=== PATIENT | male | born 1965 | race Caucasian/White ===

== ENCOUNTER → 2018-11-10 07:36 | Outpatient (CLI) | payer OTHER, SELFPAY ==
--- NOTE | 2018-11-10 07:39 | NM_ITS ---
CARDIOLITE SPECT MYOCARDIAL PERFUSION [facility], REST AND STRESS: History: Chest pain pain, fatigue, tobacco use Procedure: Patient exercised on Jayme protocol 8 minutes and 45 seconds, resting heart rate was 64 bpm resting blood pressure 143/83, with exercise maximum heart rate achieved was 1 29 bpm which is less than 85% of the maximum predicted heart rate and a blood pressure was 170/78. The test was started due to shortness of breath patient denied any complained of chest pain. Patient has good exercise capacity achieved 10.1mets of workload on treadmill, the blood pressure response to exercise was adequate. Electrocardiogram: Resting electrocardiogram showed sinus rhythm, with exercise there is less than 1.[address] segment depression noted from the baseline EKG. In the recovery period there is [address] segment depression noted. The EKG portion of the site Myoview is positive for ischemia. Cardiac stress and resting SPECT images: Cardiac stress and resting SPECT images were obtained using technetium 99 Myoview 32.4 mCi at stress and 10.6 mCi at rest. Gated SPECT further analysis of segmental wall motion and calculation of the ejection fraction also done. Cardiac stress and resting SPECT images show uniform myocardial activity without segmental perfusion abnormality, computer derived ejection fraction is 54% with no regional wall motion abnormality, right ventricle is normal size and contractility. Conclusion: 1. The EKG portion of the exercise Myoview is positive for ischemia. Patient has good exercise capacity achieved 10.1mets of workload on treadmill, the blood pressure response to exercise was adequate. Test was stopped due to shortness of breath 2. No scintigraphic evidence of reversible ischemia seen at this level of exercise, computer derived ejection fraction is 54% with no regional wall motion abnormality, right ventricle is normal size and contractility.
== END ==
PROVIDERS: PCP Internal Medicine Adolescent Medicine; Visit Provider Internal Medicine Adolescent Medicine
DX: R07.9 Chest pain, unspecified (principal)
CPT/HCPCS: 78452; 93017; A9502

== ENCOUNTER → 2019-06-07 16:08 | Outpatient (CLI) | payer OTHER, SELFPAY ==
--- NOTE | 2019-06-07 16:14 | MR_ITS ---
PROCEDURE: MR LUMBAR SPINE WO CON CLINICAL INDICATION: LUMBAGO W/SCIATICA RIGHT SIDE, OTHER CHRONIC PAIN Low back pain, right leg pain with intermittent numbness COMPARISON: No exams were available for comparison TECHNIQUE: Standard multiplanar multiecho sequences are performed without contrast. 3-D MIP and myelographic images are also rendered and reviewed FINDINGS: There is normal alignment. The spinal cord ends at the L1-L2 level. T11-T12: Mild degenerative disc disease. T12-L1: Unremarkable. L1-L2: Small anterior osteophytes with type 2 endplate changes L2-L3: Unremarkable. L3-L4: Unremarkable. L4-5: Mild bulging disc along with facet ligamentum hypertrophy with mild right and [id number] left foraminal narrowing.. A small amount fluid is present in the left facet joint superiorly at this level. L5-S1: Mild concentric bulging disc along with facet and ligamentum hypertrophy. There mild to moderate bilateral foraminal narrowing. IMPRESSION: 1. L4-5: Mild bulging disc along with facet ligamentum hypertrophy with mild right and angh-us-hcqzfxhn left foraminal narrowing.. A small amount fluid is present in the left facet joint superiorly at this level. 2. L5-S1: Mild concentric bulging disc along with facet and ligamentum hypertrophy. There mild to moderate bilateral foraminal narrowing. 3. No extruded herniated disc or canal stenosis Dictated by: Perry Lopez MD 06/07/2019 19:23 Electronically signed by Perry Lopez MD in [place] 06/07/2019 19:23
== END ==
PROVIDERS: PCP Nurse Practitioner Family; Visit Provider Nurse Practitioner Family
DX: M54.41 Lumbago with sciatica, right side (principal); G89.29 Other chronic pain
CPT/HCPCS: 72148; 76376

== ENCOUNTER → 2019-11-23 09:24 | Outpatient (CLI) | payer OTHER, SELFPAY ==
[2019-11-23 09:31] LABS: MANUAL DIFFERENTIAL MANUAL DIFFERENTIAL (MANUAL DIFF)
[2019-11-23 09:44] LABS: Basophils # 0.2 K/mm3 (0-0.2); Basophils % 1.3 % (0.1-2.0); Eosinophils # 0.4 K/mm3 (0.0-0.4); Eosinophils % 3.9 % (0.1-12.0); Hematocrit 46.9 % (42.0-52.0); Hemoglobin 15.6 g/dL (14.1-18.0); Lymphocytes # 3.3 K/mm3 (0.7-4.5); Lymphocytes % 29.7 % (10-50); Mean Corpuscular HGB Conc 33.2 g/dL (31.8-35.4); Mean Corpuscular Hemoglobin 30.2 pg (27.0-31.2); Mean Corpuscular Volume 90.9 fl (80-94); Mean Platelet Volume 8.1 fl (7.4-10.4); Monocytes # 0.5 K/mm3 (0.1-1.0); Monocytes % 4.2 % (1.7-9.3); Neutrophils # 6.7 K/mm3 (1.8-7.8); Neutrophils % 60.9 % (37.0-80.0); Platelet Count 311 K/mm3 (142-424); Red Blood Count 5.16 M/mm3 (4.60-6.20)
[2019-11-23 11:16] LABS: Alanine Aminotransferase 41 U/L (12-78); Albumin Level 4.7 g/dl (3.5-5.0); Albumin/Globulin Ratio 1.6 (1.1-1.8); Alkaline Phosphatase 102 U/L (38-126); Anion Gap 9.3 mEq/L (5-15); Aspartate Amino Transferase 34 U/L (17-59); Bilirubin,Total 0.3 mg/dl (0.2-1.3); Blood Urea Nitrogen 12 mg/dl (9-20); Calcium 9.7 mg/dl (8.4-10.2); Carbon Dioxide 26 mmol/L (22.0-30.0); Chloride 106 mmol/L (98-107); Estimated Glomerular Filt Rate 78 ml/min (>60); GFR (African American) 94 ML/MIN (>60); Globulin 2.9 g/dL (1.3-3.2); Glucose 81 mg/dl (74-100); Potassium 4.3 mmoL/L (3.5-5.1); Sodium 137 mmol/L (136-145); Total Protein,Serum 7.6 g/dl (6.3-8.2)
[2019-11-23 11:21] LABS: Eosinophils % 5 % (0-3); Lymphocytes % 38 % (10-50); Monocytes % 4 % (2-9); Neutrophils % 53 % (42-76); Platelet Estimate Normal; RBC Morphology Normal; Total Cells Counted 100
== END ==
PROVIDERS: Visit Provider Nurse Practitioner Family
DX: D72.828 Other elevated white blood cell count (principal); R74.8 Abnormal levels of other serum enzymes
CPT/HCPCS: 36415; 80053; 85007; 85014; 85018; 85048; 85049

== ENCOUNTER → 2019-11-28 09:04 | Outpatient (CLI) | payer OTHER, SELFPAY ==
[2019-11-30 09:07] LABS: Peripheral Smear Review Scanned Result
== END ==
PROVIDERS: Visit Provider Nurse Practitioner Family
DX: R74.8 Abnormal levels of other serum enzymes (principal)
CPT/HCPCS: 36415

== ENCOUNTER → 2020-01-12 10:51 | Outpatient (CLI) | payer OTHER, SELFPAY ==
[2020-01-12 13:18] LABS: Coronavirus 19 IgG Antibody Negative (Negative); Coronavirus 19 IgM Antibody Negative (Negative)
== END ==
PROVIDERS: Visit Provider Internal Medicine Gastroenterology
DX: Z01.818 Encounter for other preprocedural examination (principal)
CPT/HCPCS: 36415; 86328

== ENCOUNTER 2020-01-15 07:41 | Day surgery (SDC) | payer OTHER, SELFPAY ==
[2020-01-09 11:43] VITALS: BMI 54.3
[2020-01-15 08:05] VITALS: BP 113/74; PULSE 70; RESP 18; TEMP 36.2; O2SAT 98
[2020-01-15 09:14] VITALS: O2SAT 97
--- NOTE | 2020-01-15 09:28 | P.PCN_ITS ---
[facility] Procedure Note Procedure Note:: Upper Endoscopy Procedure Report: Esophagogastroduodenoscopy with cold biopsies and TTS balloon dilation Endoscopost: Xander Hernandez II, MD Referring Physician: ART Rasheed Date of Procedure: January 15, 2020 Equipment: Olympus GIF 180 standard upper endoscope Sedation: MAC sedation Indications: Mr. Kaba is a 54-year-old gentleman with longstanding GERD for at least 7 or 8 years. His heartburn and reflux symptoms are controlled with pantoprazole. He does report intermittent dyspepsia with epigastric abdominal discomfort. He has moderate belching and some early satiety. He reports occasional dysphagia/globus sensation. He reports no nausea. He has regular bowel function. He did have an EGD years ago. Procedure: Prior to the procedure, a history and physical exam was performed, and patient's medications and allergies were reviewed. The risks, benefits and alternatives of the sedation and procedure were discussed with the patient. All questions were answered and informed consent was obtained. The patient was brought to the procedure room. Patient identification and proposed procedure were verified by the physician and the nurse. The patient was placed in a left lateral decubitus position and the scope was passed under direct vision. Throughout the procedure, the patient's blood pressure, pulse, and oxygen saturations were monitored continuously. The upper GI endoscopy was accomplished without difficulty. The patient tolerated the procedure well. Findings: The scope was passed directly into the upper esophagus and advanced to the third portion of the duodenum. The post bulbar duodenum and duodenal bulb were normal with normal mucosa and conniventes. The scope was withdrawn through a normal duodenal bulb and pylorus into the stomach. There was mild linear reactive gastropathy of the antrum and body of the stomach. The remainder of the antrum, body and fundus of the stomach were grossly normal. Upon retroflexion there was a small 1 to 2 cm hiatal hernia. 2 biopsies were taken in the antrum and along the lesser curvature for histology to rule out gastritis and/or H pylori. The scope was then withdrawn into the esophagus. There was no evidence of reflux esophagitis, Schatzki's ring or obvious Linder's esophagus. There was a serrated Z line and biopsies were taken at the GE junction. There were tertiary contractions and evidence of mild esophageal dysmotility. The entire esophagus was dilated to 60 Malagasy/20 mm with a TTS hydrostatic balloon. There was some resistance at the cricopharyngeus. The remainder of the esophageal mucosa was normal. Impression: 1. Nonerosive GERD with mild esophageal dysmotility and small 1 to 2 cm hiatal hernia 2. Mild linear reactive gastropathy Plan: I will follow-up the biopsies. The patient does have some functional dyspepsia and longstanding GERD. I would continue pantoprazole. I will proceed with high risk screening colonoscopy.
--- NOTE | 2020-01-15 09:49 | HMH.PROC ---
[facility] Procedure Note Procedure Note:: Colonoscopy Procedure Report: Colonoscopy with cold biopsies Endoscopist: Xander Hernandez II, MD Referring physician: ART Rasheed Date of Procedure: January 15, 2020 Equipment: Olympus 180 variable stiffness pediatric colonoscope Sedation: MAC sedation Indication: Mr. Kaba is a 54-year-old gentleman here for high risk screening colonoscopy. The patient does state that his mother had colon cancer in her early 70s. His maternal aunt had colon cancer as well. He reports no abdominal pain, weight loss, change in his bowel habits or rectal bleeding. He had a colonoscopy 10 or 11 years ago which was normal. Procedure: Prior to the procedure, a history and physical exam was performed, and patient's medications and allergies were reviewed. The risks, benefits and alternatives of the sedation and procedure were discussed with the patient. All questions were answered and informed consent was obtained. The patient was brought to the procedure room. Patient identification and proposed procedure were verified by the physician and the nurse. The patient was placed in a left lateral decubitus position and the scope was passed under direct vision. Throughout the procedure, the patient's blood pressure, pulse, and oxygen saturations were monitored continuously. The colonoscopy was accomplished without difficulty. The patient tolerated the procedure well. Findings: On digital rectal examination there was normal rectal tone. There were no external hemorrhoids. The prostate was 2+, smooth, soft, symmetric without nodules. The colonoscope was introduced through the anal canal to the rectum and advanced to the cecum. The ileocecal valve and appendiceal orifice were identified. The scope was advanced a short distance into the ileum which appeared grossly normal. The scope was then withdrawn into the colon. The cecum, ascending, transverse, descending and sigmoid colon were grossly normal. There were no mucosal abnormalities identified. There was a diminutive 1 to 2 mm polyp in the rectum removed via cold biopsy. Upon retroflexion within the rectum there were grade 2 internal hemorrhoids with mild prolapse.The preparation was excellent throughout with [place] Preparation Score of 9. The cecal time was 11 minutes. Impression: 1. Diminutive rectal polyp 2. Grade 2 internal hemorrhoids Plan: Based upon the patient's family history, I would recommend repeat surveillance/screening colonoscopy again in 5 years. I will follow-up the polyp histology. I would encourage bulk fiber supplementation on a long-term daily maintenance basis.
[2020-01-15 09:50] VITALS: BP 83/52; PULSE 62; RESP 12; TEMP 36.4; O2SAT 91
--- NOTE | 2020-01-15 09:58 | HMH.ANESCL ---
[facility] Anesthesia Checklist - Structural Data Admitted From: Home Planned Operative Procedure/s: egd/colonoscopy Consent for Planned Operative Procedure(s) Verified: Yes - Airway Assessment C-Spine Mobility Assessed: Yes TMJ Mobility Assessed: Yes Dentition: Good Dentition - Neurological Assessment Level of Consciousness: Awake, Alert, Appropriate - Anesthesia Plan Anesthesia Risk discussed: Yes Anesthesia Plan: Verified ASA Class: II Anesthesia Type: MAC [facility] History I have reviewed the patient's past medical history: Yes Medical History: Reports:: Gastroesophageal Reflux Disease(GERD), Seizures (as child) Denies:: Cancer, Diabetes Mellitus Type 1, Diabetes Mellitus Type 2, MRSA *Have you ever received a pneumonia vaccine?: Yes *Have you received a flu vaccine this season?: Yes Anesthesia experience/problems:: none Laterality Cases: Right: Arthroscopy Knee Other Surgeries: Yes: Hernia Repair (x3) Amputation: No Fractures: No - *Social History Educational Level: Completed High School Smoking Status: Current every day smoker Tobacco Type: cigarettes # Packs/Day (cigarettes): 1 #Yrs smoked (if former smoker): 40 Alcohol Intake: current Alcohol Intake Frequency:: holidays/special occasions only Substance Use Type: denies use *Occupational Status:: employed *Travel in the last 8 weeks: None Family Hx:: Cancer
[2020-01-15 10:00] VITALS: BP 87/56; PULSE 53; RESP 12; O2SAT 90
[2020-01-15 10:10] VITALS: BP 121/75; PULSE 57; RESP 16; O2SAT 97
[2020-01-15 10:20] VITALS: BP 99/56; PULSE 58; RESP 16; TEMP 36.4; O2SAT 97
== END 2020-01-15 10:30 | disposition home or self-care (01) ==
PROVIDERS: PCP Internal Medicine Adolescent Medicine; Visit Provider Internal Medicine Gastroenterology
PROC: 0DJ08ZZ Inspection of Upper Intestinal Tract, Via Natural or Artificial Opening Endoscopic (ICD-10-PCS; CPT 43235; principal; 2020-01-15 09:00)
DX: Z12.11 Encounter for screening for malignant neoplasm of colon (principal); K64.1 Second degree hemorrhoids; K62.1 Rectal polyp; K21.9 Gastro-esophageal reflux disease without esophagitis; K22.2 Esophageal obstruction; K31.9 Disease of stomach and duodenum, unspecified; K44.9 Diaphragmatic hernia without obstruction or gangrene; G47.33 Obstructive sleep apnea (adult) (pediatric); Z80.0 Family history of malignant neoplasm of digestive organs; Z82.49 Family history of ischemic heart disease and other diseases of the circulatory system; Z83.438 Family history of other disorder of lipoprotein metabolism and other lipidemia; Z72.0 Tobacco use
CPT/HCPCS: 45380; 43239; 43249; C1726

== ENCOUNTER → 2020-03-07 09:30 | Outpatient (CLI) | payer OTHER, SELFPAY ==
--- NOTE | 2020-03-07 09:45 | CT_ITS ---
PROCEDURE: CT ABDOMEN PELVIS WO/W CON CLINICAL INDICATION: ACUTE ABD PAIN IN THE L LOWER QUADRANT Left lower quadrant pain COMPARISON: No exams were available for comparison TECHNIQUE: IV Contrast: 75ML OPTIRAY 350 Oral Contrast 10ml Gastroview Axial images obtained with sagittal and coronal reformats. All CT scans at the facility use one or more dose reduction, viz: automated exposure control, ma/kV adjustment per patient size (including targeted exams where dose is matched to indication, i.e. head), or iterative reconstruction technique. FINDINGS: LOWER THORAX: There is some minimal subpleural nodularity in the left lower lobe laterally at 4 mm nonspecific. There is a noncalcified 5 mm nodule in the right middle lobe inferiorly and anteriorly. Calcified granuloma is present in the lingula. There are coronary artery calcifications noted on the unenhanced exam. ABDOMEN & PELVIS: Borderline splenomegaly at 13 cm. There is hepatic steatosis. Unremarkable appearing gallbladder. The adrenal glands and pancreas have an unremarkable appearance. 2 mm nonobstructing stone is present in the mid polar region of the left kidney. No evidence of appendicitis. No intestinal obstruction or free air. There is some mild thickening of the sigmoid colon. This may be due to nondistention versus mild colitis. There are few air-fluid levels in the left lower quadrant within the small bowel which are nonspecific urinary bladder is slightly distended. There is increased density in the inguinal regions on both sides consistent with prior inguinal hernia repair. No acute bony findings. IMPRESSION: 1. Mild thickening of the sigmoid colon. This could be due to mild colitis or nondistention. 2. There are few air-fluid levels in the left lower quadrant within the small bowel. This is nonspecific. Mild enteritis is considered 3. No evidence of diverticulitis or appendicitis. 4. Nonobstructing left nephrolithiasis. No hydronephrosis or ureteral calculi. Dictated by: Perry Lopez MD 03/07/2020 15:51 Perry Lopez MD in [place] 03/07/2020 15:51
[2020-03-07 09:48] LABS: Basophils # 0.1 K/mm3 (0-0.2); Eosinophils # 0.5 K/mm3 (0.0-0.4); Eosinophils % 3.7 % (0.1-12.0); Hematocrit 48.6 % (42.0-52.0); Hemoglobin 16.9 g/dL (14.1-18.0); Lymphocytes # 3.5 K/mm3 (0.7-4.5); Mean Corpuscular HGB Conc 34.7 g/dL (31.8-35.4); Mean Corpuscular Hemoglobin 32.2 pg (27.0-31.2); Mean Corpuscular Volume 92.9 fl (80-94); Mean Platelet Volume 7.6 fl (7.4-10.4); Monocytes # 0.5 K/mm3 (0.1-1.0); Monocytes % 3.7 % (1.7-9.3); Neutrophils # 7.9 K/mm3 (1.8-7.8); Neutrophils % 63.7 % (37.0-80.0); Platelet Count 290 K/mm3 (142-424); Red Blood Count 5.23 M/mm3 (4.60-6.20); White Blood Count 12.4 K/mm3 (4.8-10.8)
[2020-03-07 10:15] LABS: Alanine Aminotransferase 26 U/L (12-78); Albumin Level 4.2 g/dl (3.5-5.0); Albumin/Globulin Ratio 1.4 (1.1-1.8); Alkaline Phosphatase 110 U/L (38-126); Anion Gap 13.7 mEq/L (5-15); Aspartate Amino Transferase 33 U/L (17-59); Bilirubin,Total 0.5 mg/dl (0.2-1.3); Blood Urea Nitrogen 12 mg/dl (9-20); Calcium 9.8 mg/dl (8.4-10.2); Carbon Dioxide 26 mmol/L (22.0-30.0); Chloride 105 mmol/L (98-107); Estimated Glomerular Filt Rate 70 ml/min (>60); GFR (African American) 84 ML/MIN (>60); Globulin 3.1 g/dL (1.3-3.2); Glucose 107 mg/dl (74-100); Potassium 4.7 mmoL/L (3.5-5.1); Sodium 140 mmol/L (136-145); Total Protein,Serum 7.3 g/dl (6.3-8.2)
== END ==
PROVIDERS: PCP Internal Medicine Adolescent Medicine; Visit Provider Nurse Practitioner Family
DX: R10.32 Left lower quadrant pain (principal)
CPT/HCPCS: 36415; 74178; 80053; 85025; Q9967

== ENCOUNTER 2023-07-15 08:00 | Outpatient (RCR) | payer OTHER, SELFPAY | END 2023-08-24 17:50 | disposition home or self-care (01) | LOC: PT 08:00 | PROVIDERS: PCP Internal Medicine Adolescent Medicine; Visit Provider Orthopaedic Surgery | DX: M75.111 Incomplete rotator cuff tear or rupture of right shoulder, not specified as traumatic (principal); Z98.890 Other specified postprocedural states | CPT/HCPCS: 97010; 97014; 97033; 97035; 97110; 97140; 97163; 97164; 97530; G0283 ==

== ENCOUNTER 2024-07-26 07:43 | Outpatient (CLI) | payer BC, SELFPAY ==
--- NOTE | 2024-07-26 07:53 | MR_ITS ---
FINAL REPORT CLINICAL HISTORY: left sided headache with vision changes FINDINGS: Multiplanar MR imaging of the brain was performed without and with contrast. There are tiny scattered foci of abnormal signal in the deep white matter bilaterally, particularly in the frontal lobes consistent with microvascular ischemia. There is lobular mucoperiosteal thickening of the right maxillary sinus consistent with chronic sinusitis.There is no evidence of intracranial hemorrhage or mass. No abnormal extra-axial fluid collection is seen. The ventricular size is within normal limits. There is no evidence of shift of the midline structures. The posterior fossa and brainstem have an unremarkable appearance. No area of abnormal restricted diffusion is identified. No abnormal contrast enhancement is seen. Normal major vessel vascular flow voids are noted. IMPRESSION: No acute intracranial abnormality identified. Microvascular ischemic change. Chronic right maxillary sinusitis. Reviewed, Interpreted and Dictated by Deo Ferrara MD Transcribed by Navya Vega Authenticated and . [facility]
[2024-07-26] MEDS: SODIUM CHLORIDE 0.9% 10ML SYR (RAD ONLY) 10 ML IV (08:41)
[2024-07-26] MEDS: GADOTERIDOL INJ 20ML SYRINGE 15 ML IV (08:41)
== END 2024-07-26 23:59 | disposition home or self-care (01) ==
PROVIDERS: PCP Internal Medicine Adolescent Medicine; Visit Provider Nurse Practitioner Family
DX: R51.9 Headache, unspecified (principal); H53.9 Unspecified visual disturbance
CPT/HCPCS: 70553; A9576

== ENCOUNTER 2024-09-02 09:41 | Outpatient (CLI) | payer BC, SELFPAY ==
[2024-09-02 10:00] LABS: Basophils # 0.1 K/mm3 (0-0.2); Basophils % 1.2 % (0.1-2.0); Eosinophils # 0.4 K/mm3 (0.0-0.4); Eosinophils % 3.3 % (0.1-12.0); Lymphocytes # 3.3 K/mm3 (0.7-4.5); Lymphocytes % 29.1 % (10-50); Mean Corpuscular HGB Conc 33.3 g/dL (31.8-35.4); Mean Corpuscular Hemoglobin 30.5 pg (27.0-31.2); Mean Corpuscular Volume 91.6 fl (80-94); Mean Platelet Volume 8.7 fl (7.4-10.4); Monocytes # 0.6 K/mm3 (0.1-1.0); Monocytes % 5.7 % (1.7-9.3); Neutrophils # 6.8 K/mm3 (1.8-7.8); Neutrophils % 60.5 % (37.0-80.0); Platelet Count 268 K/mm3 (142-424); Red Blood Count 4.91 M/mm3 (4.60-6.20); Red Cell Distribution Width 13.5 % (11.5-17.5); White Blood Count 11.2 K/mm3 (4.8-10.8)
[2024-09-02 10:22] LABS: Albumin Level 4.3 g/dl (3.5-5.0); Chloride 108 mmol/L (98-107); Sodium 141 mmol/L (136-145)
[2024-09-02 10:23] LABS: Potassium 4.4 mmoL/L (3.5-5.1)
[2024-09-02 10:25] LABS: Alanine Aminotransferase 23 U/L (12-78); Albumin/Globulin Ratio 1.7 (1.1-1.8); Anion Gap 10.4 mEq/L (5-15); Aspartate Amino Transferase 26 U/L (17-59); Blood Urea Nitrogen 19 mg/dl (9-20); Carbon Dioxide 27 mmol/L (22.0-30.0); Estimated Glomerular Filt Rate 69 ml/min (>60); GFR (African American) 83 ML/MIN (>60); Globulin 2.5 g/dL (1.3-3.2); Total Protein,Serum 6.8 g/dl (6.3-8.2)
[2024-09-02 10:26] LABS: Alkaline Phosphatase 106 U/L (38-126); Bilirubin,Total 0.4 mg/dl (0.2-1.3); Calcium 9.2 mg/dl (8.4-10.2); Chol/HDL Ratio 4.9 (1-3.5); Cholesterol 172 mg/dl (140-200); Glucose 94 mg/dl (74-100); HDL Cholesterol 35 mg/dl (40-60); Triglycerides 133 mg/dl (30-150); VLDL Cholesterol 27 mg/dL (0-40)
[2024-09-02 10:39] LABS: Direct LDL Cholesterol 110.02 mg/dL (100-129)
[2024-09-02 10:57] LABS: Thyroid Stimulating Hormone 1.58 uIU/mL (0.465-4.68)
[2024-09-03 08:09] LABS: Testosterone,Total 543 ng/dL (264-916)
== END 2024-09-02 23:59 | disposition home or self-care (01) ==
LOC: LAB 09:43
PROVIDERS: PCP Nurse Practitioner Family; Visit Provider Nurse Practitioner Family
DX: N52.9 Male erectile dysfunction, unspecified (principal); R23.3 Spontaneous ecchymoses
CPT/HCPCS: 36415; 80053; 80061; 84403; 84443; 85025

== ENCOUNTER 2024-09-13 15:15 | Outpatient (CLI) | payer BC, SELFPAY ==
--- NOTE | 2024-09-13 15:18 | CT_ITS ---
FINAL REPORT CLINICAL HISTORY: HX OF TOBACCO smoker 1/2 ppd 44 years COMPARISON: None FINDINGS: CT CHEST LOW DOSE SCREENING HISTORY: Screening exam for lung cancer. 59-year-old male, Current smoker, 22 pack year smoking history DOSE: CTDIvol: 2.9 mGy, DLP: 97.95 mGy*cm COMPARISON: None . TECHNIQUE: Axial CT without IV contrast administration using low dose protocol. This study was performed with techniques to keep radiation doses as low as reasonably achievable, (ALARA). Individualized dose reduction techniques using automated exposure control or adjustment of mA and/or kV according to the patient's size were employed. FINDINGS: No acute lung disease is present . There is a left lower lobe nodule measuring 5 mm in size, best seen on image #36 of series 3. This nodule is near the major fissure, favor an intrafissural node. There is a 3 mm subpleural nodule in the right upper lobe, best seen on image #12 of series 3. Changes of emphysema are noted. No pleural or pericardial effusion is seen . No adenopathy or mass lesion is present . IMPRESSION: Nodules as described above. LUNG RADS CATEGORY 2 RECOMMENDATION: 12 month LDCT follow up Reviewed, Interpreted and Dictated by Elias Flores MD Transcribed by Fartun Bone Authenticated and [facility]
== END 2024-09-13 23:59 | disposition home or self-care (01) ==
LOC: RAD 15:15
PROVIDERS: PCP Nurse Practitioner Family; Visit Provider Nurse Practitioner Family
DX: Z87.891 Personal history of nicotine dependence (principal)
CPT/HCPCS: 71271